=== PATIENT | male | born 1985 | race Caucasian/White ===

== ENCOUNTER 2016-12-30 17:36 | Emergency (ER) | payer SELFPAY ==
[~2016-12-30] VITALS: Ht 180.3 cm; Wt 116.0 kg
[2016-12-30 17:37] VITALS: BP 133/80; PULSE 83; RESP 20; TEMP 97; O2SAT 97
--- NOTE | 2016-12-30 17:40 | PD ---
Physical Exam Time Seen by Provider: 17:39 Narrative 31 year old male with right wrist pain for 2 weeks, worse today. Denies acute injury. VSS Seen in triage, awaiting bed placement. Data Data Last Documented VS Vital Signs Date Time Temp Pulse Resp B/P Pulse Ox O2 Delivery O2 Flow Rate FiO2 12/30/16 17:37 97.0 83 20 133/80 97 Room Air [facility] Medical Record Reviewed: Yes Supervised Visit with MATTHIAS: Yes Yuniel Vaughn Dec 30, 2016 17:40
[2016-12-30] MEDS ORDERED: PRIL20CA9 PO (18:09)
[2016-12-30] MEDS ORDERED: KETOROLAC TROMETHAMINE 60 MG/2 ML (IM) VIAL IM ONE (18:30)
[2016-12-30] MEDS ORDERED: PRED-503 PO (18:31)
[2016-12-30] MEDS ORDERED: NAPR500T PO (18:31)
--- NOTE | 2016-12-30 18:32 | PD ---
HPI Chief Complaint: Pain: Acute or Chronic Time Seen by Provider: 18:26 Travel History International Travel<30 days: No Contact w/Intl Traveler<30days: No Traveled to known affect area: No History of Present Illness HPI 31-year-old male presents to the emergency Department with complaint of right wrist pain that started 2 weeks ago with worsening over the past 2 days. 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 He denies injury. He says his left wrist has also been hurting. He reports paresthesias to the right fourth and fifth fingers. Reports decreased machine inspector strength. Pain in his wrist is severe. Pain radiates up to his elbow at times. He denies fever, chills, nausea, vomiting. Denies loss of sensation. Has taken ibuprofen with no relief of pain. Pain is aggravated with movement and palpation. No known relieving factors. No known allergies. Denies significant past medical history. No other medical complaints. No other modifying factors or associated signs and symptoms. PFSH Past Medical History Medical History: Denies Significant Hx Social History Alcohol Use: Yes Tobacco Use: Yes Substance Use: No Allergies-Medications (Allergen,Severity, Reaction): Coded Allergies: No Known Allergies (Unverified , 12/30/16) Reported Meds & Prescriptions Reported Meds & Active Scripts Active Naproxen 500 Mg Tab 500 Mg PO BID PRN Deltasone (Prednisone) 20 Mg Tab 40 Mg PO DAILY 5 Days Reported Prilosec (Omeprazole) 20 Mg Cap 20 Mg PO DAILY Review of Systems Except as stated in HPI: all other systems reviewed are Neg Physical Exam Narrative GENERAL: Well-nourished, well-developed male patient, in no acute distress; afebrile, nontoxic-appearing SKIN: Warm and dry. HEAD: Atraumatic. Normocephalic. EYES: Pupils equal and round. No scleral icterus. No injection or drainage. ENT: Mucosa pink and moist. Airway patent. NECK: Trachea midline. CARDIOVASCULAR: Regular rate. RESPIRATORY: No accessory muscle use. GASTROINTESTINAL: Rounded. MUSCULOSKELETAL: Right wrist with tenderness on palpation to all aspects; with decreased range of motion secondary to pain; decreased machine inspector strength; no obvious deformity; without erythema, edema, ecchymosis. Right upper extremity is supple and non-tense with 2+ radial pulse and sensory intact and without erythema or edema. No obvious deformities. No clubbing. No cyanosis. NEUROLOGICAL: Awake and alert. Oriented 3. No obvious cranial nerve deficits. Motor grossly within normal limits. Normal speech. PSYCHIATRIC: Appropriate mood and affect; insight and judgment normal. Data Data Last Documented VS Orders Wrist, Complete ([id number]) (12/30/16 18:21) Ketorolac Inj (Toradol Inj) (12/30/16 18:30) Splint Or Brace Apply/Monitor (12/30/16 18:21) Cockup Hand Splint (12/30/16 ) [facility] Medical Decision Making Medical Screen Exam Complete: Yes Emergency Medical Condition: Yes Medical Record Reviewed: Yes Differential Diagnosis Carpal tunnel syndrome, wrist sprain, ganglion cyst Narrative Course 31-year-old male with right wrist pain most consistent with carpal tunnel syndrome. Right upper extremity supple and nontender 2+ radial pulses and sensory intact. The right wrist is severely tender to palpation. I will obtain an x-ray to rule out any acute process. Toradol ordered. Wrist splint ordered. Right wrist xray unremarkable. Wrist splint provided for support. Naproxen and Deltasone prescribed for home. Injected patient to follow up with hand or orthopedic. Patient verbalizes understanding and agreement with treatment plan. Patient is medically cleared and stable for discharge. Discussed reasons to return to the emergency department. Instructed patient to follow up with primary care provider. Patient agrees with treatment plan. The patients vital signs are stable and the patient is stable for outpatient follow-up and treatment. Patient discharged home, stable and in no acute distress. Diagnosis Primary Impression: Right wrist pain Referrals: Hand Surgeon Orthopedist Primary Care Physician Patient Instructions: Carpal Tunnel Syndrome (ED), General Instructions Departure Forms: Tests/Procedures, Work Release Enter return to work date: Jan 02, 2017 Additional Instructions: Wrist splint for support; can use at night while sleeping Avoid sleeping on your hands to help ease pain and numbness in your wrist and hand Rotate your wrist and stretch your palms and fingers Take a pain reliever, such as Advil, Motrin, ibuprofen, Aleve as needed and as directed Follow-up with primary care provider Return to the emergency department immediately with worsening of symptoms Med/Other Pt SpecificInfo: Prescription(s) given Scripts Naproxen 500 Mg [id number] Mg PO BID PRN (PAIN SCALE 1 TO 10) #20 TAB Ref 0 Prov:Brenna Garcia 12/30/16 Prednisone (Deltasone)20 Mg Tab40 Mg PO DAILY 5 Days Ref 0 Prov:Brenna Garcia 12/30/16 Disposition: 01 DISCHARGE HOME Condition: Stable Brenna Garcia Dec 30, 2016 18:32 Brenna Garcia Dec 30, 2016 18:32
--- NOTE | 2016-12-30 19:10 | RADRPT ---
EXAM DATE/TIME: 12/30/2016 18:51 [facility] COMPARISON: No previous studies available for comparison. INDICATIONS : Pain of the right wrist x 2 days. Pt denies any trauma to his wrist. MEDICAL HISTORY : None. SURGICAL HISTORY : None. ENCOUNTER: Initial ACUITY: 1 day PAIN SCORE: 9/10 LOCATION: Right Wrist FINDINGS: Three view examination of the right wrist demonstrates no soft tissue swelling, dislocation, or fract ure. The carpal bones are in normal alignment. There is small benign lucencies in the scaphoid. The joint spaces are maintained. Bony mineralization is normal. CONCLUSION: 1. Small benign lucencies in the scaphoid. 2. The study is otherwise unremarkable. Garrick De La Cruz MD on December 30, 2016 at 19:08 Board Certified Radiologist. This report was verified electronically.
== END 2016-12-30 19:28 | disposition home or self-care (01) ==
LOC: NEPK 17:36
DX: M25.531 Pain in right wrist (principal); M25.532 Pain in left wrist; R20.2 Paresthesia of skin; Z72.0 Tobacco use
CPT/HCPCS: 73110; 96372; 99283; J1885; L3908